=== PATIENT | female | born 1945 | race Two or more races ===

== ENCOUNTER 2021-04-30 17:59 | Emergency (ER) | payer OTHER ==
[~2021-04-30] VITALS: Ht 149.9 cm; Wt 56.7 kg
[2021-04-30] MEDS ORDERED: PEPCID AC20 MG PO (20:58)
[2021-04-30] MEDS ORDERED: ZOFRAN8 MG PO (20:58)
== END 2021-04-30 21:07 | disposition home or self-care (01) ==
LOC: ER 17:59
DX: K29.60 Other gastritis without bleeding (principal); R11.2 Nausea with vomiting, unspecified; R10.13 Epigastric pain

== ENCOUNTER 2023-04-26 21:20 | Emergency (ER) | payer OTHER ==
[~2023-04-26] VITALS: Ht 149.9 cm; Wt 56.2 kg
[~2023-04-26 21:20] MED LIST: PEPCID AC20 MG PO; ZOFRAN8 MG PO
[2023-04-26] MEDS ORDERED: ROSUVASTATIN CAL5 MG PO (21:56)
[2023-04-26] MEDS ORDERED: VERAPAMIL SR180 MG PO (21:56)
[2023-04-26] MEDS ORDERED: OMEPRAZOLE20 MG PO (21:56)
== END 2023-04-27 02:29 | disposition home or self-care (01) ==
LOC: ER 21:20
DX: R11.10 Vomiting, unspecified (principal); I10 Essential (primary) hypertension; Z88.2 Allergy status to sulfonamides

== ENCOUNTER 2024-05-10 09:46 | Emergency (ER) | payer OTHER, BC ==
[~2024-05-10] VITALS: Ht 149.9 cm; Wt 56.7 kg
[~2024-05-10 09:46] MED LIST changes: +OMEPRAZOLE20 MG PO; +ROSUVASTATIN CAL5 MG PO; +VERAPAMIL SR180 MG PO
[2024-05-10] MEDS ORDERED: HYDROCODONE/CHLORPHEN P-STIREX 5 ML ML PO STA (10:19)
[2024-05-10] MEDS ORDERED: ONDANSETRON HCL 2 MG/ML VIAL IM STA (10:20)
[2024-05-10] MEDS ORDERED: CEFTRIAXONE SODIUM 1,000 MG VIAL IM STA (10:20)
[2024-05-10] MEDS ORDERED: ONDANSETRON 4 MG TAB.RAPDIS PO ONE (10:24)
[2024-05-10] MEDS ORDERED: CEFTRIAXONE SODIUM 1,000 MG VIAL ONE (10:24)
== END 2024-05-10 10:37 | disposition home or self-care (01) ==
LOC: ER 09:46
DX: J06.9 Acute upper respiratory infection, unspecified (principal); Z88.8 Allergy status to other drugs, medicaments and biological substances
CPT/HCPCS: 96372; 99282; J0696; J2405